=== PATIENT | male | born 1990 | race Caucasian/White ===

== ENCOUNTER 2018-01-11 17:37 | Emergency (ER) | payer OTHER ==
[2018-01-11] MEDS ORDERED: HYDROCODONE/ACETAMINOPHEN 10-325 MG TABLET PO ONE (17:51)
--- NOTE | 2018-01-11 17:53 | ER Document Report ---
ED Medical Screen (RME) - General Chief Complaint: Toe Injury Stated Complaint: FOOT INJURY Time Seen by Provider: 01/11/18 17:50 Notes: Patient is a 20-year-old male presenting to the emergency department states a dump truck metal piece fell on his left great toe prior to arrival. Patient immediately presents to the emergency room. Patient denies hitting his head, neck, back or pain in any. Past medical history: None Medications: None Allergies: None Patient states he is up-to-date on his tetanus. Physical exam: Oblique laceration noted across the left great toe with crushed tissue and swelling noted. Capillary refill less than 2 seconds distal toe. I have greeted and performed a rapid initial assessment of this patient. A comprehensive ED assessment and evaluation of the patient, analysis of test results and completion of the medical decision making process will be conducted by additional ED providers. TRAVEL OUTSIDE OF THE [place] IN LAST 30 DAYS: No - Related Data Allergies/Adverse Reactions: No Known Allergies Allergy (Verified 01/11/18 17:40) Physical Exam - Vital signs Vitals: Temp Pulse Resp BP Pulse Ox 98.7 F 72 16 146/87 H 100 01/11/18 17:45 01/11/18 17:45 01/11/18 17:45 01/11/18 17:45 01/11/18 17:45 Course - Vital Signs Vital signs: Temp Pulse Resp BP Pulse Ox 98.7 F 72 16 146/87 H 100 01/11/18 17:45 01/11/18 17:45 01/11/18 17:45 01/11/18 17:45 01/11/18 17:45
--- NOTE | 2018-01-11 18:22 | RADIOLOGY REPORT (SQ) ---
EXAM DESCRIPTION: TOE LEFT COMPLETED DATE/TIME: 01/11/2018 6:05 pm REASON FOR STUDY: great toe, trauma COMPARISON: None. EXAM PARAMETERS: NUMBER OF VIEWS: Three views. TECHNIQUE: AP, lateral and oblique radiographic images acquired of the left foot. LIMITATIONS: None. FINDINGS: MINERALIZATION: Normal. BONES: 2 fractures in the distal phalanx of the left great toe, a distal tuft fracture with minimal d isplacement and a nondisplaced intra-articular oblique fracture in the lateral base at the interphala ngeal joint. No Dislocation. No worrisome bone lesions. JOINTS: No effusion. SOFT TISSUES: 1st digit soft tissue swelling. No radiopaque foreign body. OTHER: No other significant finding. IMPRESSION: 2 fractures in the distal phalanx of the left great toe, a distal tuft fracture with min imal displacement and a nondisplaced intra-articular oblique fracture in the lateral base at the inte rphalangeal joint. No Dislocation. TECHNICAL DOCUMENTATION: JOB ID: [id number] [place]-72 2010 [employer]- All Rights Reserved Reading location - IP/workstation name: [email or web address]
--- NOTE | 2018-01-11 19:33 | ER Document Report ---
ED Extremity Problem, Lower - General Chief Complaint: Toe Injury Stated Complaint: FOOT INJURY Time Seen by Provider: 01/11/18 17:50 Mode of Arrival: Ambulatory Information source: Patient Notes: Patient is an otherwise healthy 28-year-old male who presents with chief complaint of left great toe injury. Patient reports that he was working with a lift gate when the lift gate crushed his foot. Patient reports pain to the great toe only on the left side. Denies any other pain. Patient is able to ambulate on the affected extremity. TRAVEL OUTSIDE OF THE [place] IN LAST 30 DAYS: No - Related Data Allergies/Adverse Reactions: No Known Allergies Allergy (Verified 01/11/18 17:40) Past Medical History - General Information source: Patient - Social History Smoking Status: Current Some Day Smoker Chew tobacco use (# tins/day): No Frequency of alcohol use: Social Drug Abuse: None Family History: Reviewed & Not Pertinent Patient has suicidal ideation: No Patient has homicidal ideation: No - Medical History Medical History: Negative Renal/ Medical History: Denies: Hx Peritoneal Dialysis Surgical Hx: Negative - Immunizations Immunizations up to date: Yes Review of Systems - Review of Systems Musculoskeletal: See HPI Skin: See HPI -: Yes All other systems reviewed and negative Physical Exam - Vital signs Vitals: Temp Pulse Resp BP Pulse Ox 98.7 F 72 16 146/87 H 100 01/11/18 17:45 01/11/18 17:45 01/11/18 17:45 01/11/18 17:45 01/11/18 17:45 - Notes Notes: PHYSICAL EXAMINATION: GENERAL: Well-appearing, well-nourished and in no acute distress. HEAD: Atraumatic, normocephalic. EYES: Pupils equal round extraocular movements intact, conjunctiva are normal. ENT: Nares patent NECK: Normal range of motion LUNGS: No respiratory distress Musculoskeletal: Normal range of motion, tenderness to palpation to left great toe. Cap refill less than 3 seconds. NEUROLOGICAL: Normal speech, normal gait. PSYCH: Normal mood, normal affect. SKIN: Warm, Dry, normal turgor, no rashes or lesions noted. Avulsion injury noted to left great toe, toenail is intact. Course - Re-evaluation Re-evalutation: Multiple fractures noted to the left great toe. There is a avulsion/laceration however is very superficial, the nail appears to be intact. I do not believe the suture will hold the skin in place. Xeroform dressing will be placed after foot thoroughly cleaned. Patient instructed to leave dressing in place for 24 hours. Patient also instructed to return in 48 hours for wound recheck. Patient verbalizes understanding. - Vital Signs Vital signs: Temp Pulse Resp BP Pulse Ox 98.1 F 64 18 140/93 H 100 01/11/18 20:07 01/11/18 20:07 01/11/18 20:07 01/11/18 20:07 01/11/18 20:07 Procedures - Immobilization Left foot Pre-Proc Neuro Vasc Exam: Normal Immobilizer type: Post-op shoe Performed by: PCT Post-Proc Neuro Vasc Exam: Normal Discharge - Discharge Clinical Impression: Contusion Qualifiers: Encounter type: initial encounter Contusion area: foot Laterality: left Qualified Code(s): S90.32XA - Contusion of left foot, initial encounter Condition: Stable Disposition: HOME, SELF-CARE Additional Instructions: Contusion Your injury has resulted in a contusion -- a crushing of the deep tissues. No injury to important structures was detected during the physician's exam. Contusions vary in the amount of pain they cause, and in the length of time required for healing. Typically, the area will become bruised, and will remain painful to touch for two or three weeks. However, most patients are back to working and playing within a few days. After the initial period of rest and cold-packs, your symptoms (together with the doctor's recommendations) will determine how rapidly you can get back to full activity. Usually this means "do what feels okay, but don't do things that hurt." If re-examination was recommended, it's important to follow up as instructed. Call the doctor or return any time if pain increases, if swelling becomes severe, if you develop numbness or weakness in an injured extremity, or if any other alarming symptoms occur. Fracture You have a fracture. The typical broken bone requires only protection and sufficient time for healing. "Setting" is necessary only if the bones are crooked or out of position. The physician will re-assess you periodically to make certain that the bone heals without complications. It's important that you follow the instructions given you. The initial treatment is immobilization, elevation of the injury, and cold packs. Not all fractures require a cast. Depending on the location and type of fracture, immobilization may consist of a splint, cast, sling, bulky dressing , or simply rest. The length of time required for healing depends on the location and type of fracture, and on the age of the patient. The treatment plan the physician has outlined for you is customized to your fracture and health condition. Call the doctor or return at once if pain becomes severe, or if severe swelling or numbness develop. Cephalexin The antibiotic you've been prescribed is a member of the cephalosporin class. This type of antibiotic covers a wide variety of infections, including those of the skin, lungs, and urinary tract. It's useful for staph infections. This antibiotic is slightly similar to the penicillin family. In rare cases , a person who is allergic to penicillin will also be allergic to this medication. If you have had a severe allergic reaction to penicillin, and have not taken this antibiotic since that time, notify your doctor. Antibiotics which cover many germs ("broad spectrum" antibiotics) are more likely to cause diarrhea or "yeast" infections. Women prone to vaginal yeast problems may suffer an attack after taking this antibiotic. In infants, oral thrush (white spots "stuck" on the cheek) or yeast diaper rash may result. See your doctor if these problems occur. Call at once if you develop itching, hives , shortness of breath, or lightheadedness. Please keep the dressing in place for at least 24 hours. At that point take it off and gently cleanse the area with soap and water. Apply a thin layer of triple antibiotic ointment to the area twice daily and keep clean and dry. Wear the postop shoe. Call orthopedics tomorrow morning and try to schedule an appointment for follow-up on Monday. Either way I would like someone to take a look at the wound for wound recheck in 48 hours. I will be here at the hospital from 7 AM to 7 PM (dayshift) Monday and Monday. Monday I will be here (nightshift) at 7 PM to 7 AM overnight. I will be happy to take a look at the wound for you. Prescriptions: Cephalexin [Cephalexin 500 MG Tablet] 500 mg PO QID #28 tablet Hydrocodone Bit/Acetaminophen [Hydrocodon-Acetaminophen 5-325] 1 each PO Q4H # 12 tablet Referrals: BANDAR PRIETO MD [ACTIVE STAFF] - Follow up as needed
[2018-01-11] MEDS ORDERED: HYDROCODONE/ACETAMINOPHEN 5-325 MG (6 TAB/ER DISP) PO PRN (19:42)
[2018-01-11] MEDS ORDERED: CEPHALEXIN 500 MG CAPSULE PO ONE (19:42)
[2018-01-11 20:21] VITALS: BP 140/93
== END 2018-01-11 20:10 | disposition home or self-care (01) ==
LOC: ER 17:37
DX: S90.32XA Contusion of left foot, initial encounter (principal); W24.0XXA Contact with lifting devices, not elsewhere classified, initial encounter; Y99.0 Civilian activity done for income or pay; F17.200 Nicotine dependence, unspecified, uncomplicated
CPT/HCPCS: 99283